=== PATIENT | male | born 1950 | race Two or more races ===

== ENCOUNTER 2017-08-12 19:32 | Emergency (ER) | payer MEDICARE ==
[2017-08-12] MEDS ORDERED: ONDANSETRON HCL INJ/PF 4 MG/2 ML SDV IV ONE (20:23)
[2017-08-12] MEDS ORDERED: HYDROMORPHONE HCL INJ/PF 2 MG/ML AMPULE IV ONE (20:23)
[2017-08-12] MEDS ORDERED: KETOROLAC TROMETHAMINE INJ/PF 30 MG/1 ML SDV IV ONE (20:23)
[2017-08-12] MEDS ORDERED: NORMAL SALINE 1000 ML 1,000 ML IV ONE (20:24)
--- NOTE | 2017-08-12 20:29 | ER Document Report ---
ED Medical Screen (RME) - General Chief Complaint: Abdominal Pain Stated Complaint: ABDOMINAL PAIN Time Seen by Provider: 08/12/17 20:18 Notes: Using NIMCO Ramirez, as security flex utility officer because JOSIE could not be found in [facility]. 66-year-old male, no past medical history no surgeries, presents with 2 days of diffuse abdominal pain and nausea. He is also having bilateral flank pain and a small amount of dysuria. PE: Tachycardia, diffuse abdominal tenderness, normal bowel sounds I have greeted and performed a rapid initial assessment of this patient. A comprehensive ED assessment and evaluation of the patient, analysis of test results and completion of the medical decision making process will be conducted by additional ED providers. - Related Data Allergies/Adverse Reactions: No Known Allergies Allergy (Verified 08/12/17 19:36) Physical Exam - Vital signs Vitals: Temp Pulse Resp BP Pulse Ox 99.5 F 120 H 18 147/86 H 95 08/12/17 19:38 08/12/17 19:38 08/12/17 19:38 08/12/17 19:38 08/12/17 19:38 Course - Vital Signs Vital signs: Temp Pulse Resp BP Pulse Ox 99.5 F 120 H 18 147/86 H 95 08/12/17 19:38 08/12/17 19:38 08/12/17 19:38 08/12/17 19:38 08/12/17 19:38
[2017-08-12 20:56] LABS: HEMOGLOBIN 13.7 g/dL (13.5-17.0); MEAN CORPUSCULAR HEMOGLOBIN 29.1 pg (27.0-33.4); MEAN CORPUSCULAR HGB CONC 34.3 g/dL (32.0-36.0); MEAN CORPUSCULAR VOLUME 85 fl (80-97); PLATELET COUNT 233 10^3/uL (150-450); RED BLOOD COUNT 4.72 10^6/uL (4.35-5.55); RED CELL DISTRIBUTION WIDTH 15.1 % (11.5-14.0); WHITE BLOOD COUNT 7.5 10^3/uL (4.0-10.5)
[2017-08-12] MEDS ORDERED: LIDOCAINE 2% VISCOUS SOLN 20 ML UDCUP PO ONE (21:03)
[2017-08-12] MEDS ORDERED: MAG HYDROX/AL HYDROX/SIMETH SUSP 30 ML UDCUP PO ONE (21:03)
[2017-08-12] MEDS ORDERED: METOCLOPRAMIDE HCL ORAL SOLN 10 MG/10 ML UDCUP PO ONE (21:03)
[2017-08-12 21:10] LABS: ALANINE AMINOTRANSFERASE 43 U/L (21-72); ALBUMIN 3.6 g/dL (3.5-5.0); ALKALINE PHOSPHATASE 143 U/L (38-126); ANION GAP 14 (5-19); ASPARTATE AMINO TRANSFERASE 48 U/L (17-59); BILIRUBIN,DIRECT 0.5 mg/dL (0.0-0.4); BILIRUBIN,TOTAL 0.8 mg/dL (0.2-1.3); BLOOD UREA NITROGEN 16 mg/dL (7-20); CALCIUM 8.8 mg/dL (8.4-10.2); CARBON DIOXIDE 25 mmol/L (22-30); CHLORIDE 97 mmol/L (98-107); GLUCOSE 108 mg/dL (75-110); LIPASE 145.3 U/L (23-300); POTASSIUM 4.9 mmol/L (3.6-5.0); SODIUM 135.9 mmol/L (137-145); TOTAL PROTEIN 7.9 g/dL (6.3-8.2)
[2017-08-12 21:14] LABS: ABSOLUTE LYMPHOCYTES# (MANUAL) 1.7 10^3/uL (0.5-4.7); ABSOLUTE MONOCYTES # (MANUAL) 1.1 10^3/uL (0.1-1.4); ABSOLUTE NEUTROPHILS# (MANUAL) 4.7 10^3/uL (1.7-8.2); BASOPHILS % (MANUAL) 0 % (0-2); EOSINOPHILS % (MANUAL) 1 % (0-6); LYMPHOCYTES % (MANUAL) 20 % (13-45); MONOCYTES % (MANUAL) 15 % (3-13); SEGMENTED NEUTROPHILS % (MAN) 62 % (42-78); TOTAL CELLS COUNTED 100
[2017-08-12 21:15] LABS: ANISOCYTOSIS SLIGHT; PLATELET COMMENT ADEQUATE; TOXIC GRANULATION SLIGHT
[2017-08-12 22:11] LABS: APPEARANCE,URINE CLEAR; BILIRUBIN,URINE NEGATIVE (NEGATIVE); COLOR,URINE YELLOW; GLUCOSE, URINE NEGATIVE (NEGATIVE); KETONES,URINE TRACE mg/dL (NEGATIVE); LEUKOCYTE ESTERASE,URINE NEGATIVE (NEGATIVE); NITRITE,URINE NEGATIVE (NEGATIVE); PROTEIN,URINE NEGATIVE (NEGATIVE)
--- NOTE | 2017-08-12 22:36 | EKG REPORT ---
SEVERITY:- OTHERWISE NORMAL ECG - SINUS TACHYCARDIA : Confirmed by: Justin Armstrong 12-Aug-2017 22:34:54
--- NOTE | 2017-08-12 22:41 | RADIOLOGY REPORT (SQ) ---
EXAM DESCRIPTION: CT ABD/PELVIS WITH IV ONLY COMPLETED DATE/TIME: 08/12/2017 10:23 pm REASON FOR STUDY: abd pain COMPARISON: None. TECHNIQUE: CT scan of the abdomen and pelvis performed using helical scanning technique with dynamic intravenous contrast injection. No oral contrast. Images reviewed with lung, soft tissue, and bone windows. Reconstructed coronal and sagittal MPR images reviewed. Delayed images for evaluation of the urinary system also acquired. All images stored on PACS. All CT scanners at this facility use dose modulation, iterative reconstruction, and/or weight based d osing when appropriate to reduce radiation dose to as low as reasonably achievable (ALARA). [facility]: Dose Right [facility]: CareDose [facility]: Dose Right [facility]: Teradose 4D [facility]: Venda CONTRAST TYPE AND DOSE: contrast/concentration: Isovue 370.00 mg/ml; Total Contrast Delivered: 82.0 ml; Total Saline Delivered: 38.0 ml RENAL FUNCTION: Not recorded. RADIATION DOSE: CT Rad equipment meets quality standard of care and radiation dose reduction techniq ues were employed. CTDIvol: 9.9 mGy. DLP: 1129 mGy-cm.. LIMITATIONS: None. FINDINGS: LOWER CHEST: 2 small right pulmonary nodules are present. The larger on image 9 measures about 7 mm. LIVER: Normal size. No masses. No dilated ducts. SPLEEN: Normal size. No focal lesions. PANCREAS: No masses. No significant calcifications. No adjacent inflammation or peripancreatic fluid collections. Pancreatic duct not dilated. GALLBLADDER: No identified stones by CT criteria. No inflammatory changes to suggest cholecystitis. ADRENAL GLANDS: There is thickening of the right adrenal gland. A 56 mm left adrenal mass is present . This is relatively low-density. RIGHT KIDNEY AND URETER: No solid masses. No significant calcifications. No hydronephrosis or hyd roureter. LEFT KIDNEY AND URETER: No solid masses. No significant calcifications. No hydronephrosis or hydr oureter. AORTA AND VESSELS: No aneurysm. No dissection. Renal arteries, SMA, celiac without stenosis. RETROPERITONEUM: Periaortic, and mesenteric adenopathy is present. There is what appears to be a a 5 5 mm shae mass just to the right of the aorta as measured on image 32. BOWEL AND PERITONEAL CAVITY: No masses or inflammatory changes. No free fluid or peritoneal masses. APPENDIX: Normal. PELVIS: No mass. No free fluid. Normal bladder. ABDOMINAL WALL: No masses. No hernias. BONES: No acute osseous abnormality. OTHER: No other significant finding. IMPRESSION: 1. 2 small incidental right pulmonary nodules. 2. Abdominal adenopathy concerning for lymphoma. 3. The mass described to the right of the aorta can be seen to be separate from the adrenal. There is thickening in the right adrenal gland. 4. The mass on the left cannot be seen to be separate from the adrenal and is felt to represent an a drenal mass. TECHNICAL DOCUMENTATION: JOB ID: [id number] Quality ID # [id number]: Final reports with documentation of one or more dose reduction techniques (e.g., Au tomated exposure control, adjustment of the mA and/or kV according to patient size, use of iterative reconstruction technique) 2010 [employer]- All Rights Reserved Reading location - IP/workstation name: [email or web address]
--- NOTE | 2017-08-12 23:29 | ER Document Report ---
ED General - General Chief Complaint: Abdominal Pain Stated Complaint: ABDOMINAL PAIN Time Seen by Provider: 08/12/17 20:18 Mode of Arrival: Ambulatory Information source: Patient Notes: 66-year-old male interpretation performed with Kathia presents with epigastric pain. Pt notes he gets gerd often, denies any fevers or chills, denies any chest pain. - HPI Onset: Last week - For the past 5 days Onset/Duration: Persistent Quality of pain: Burning Severity: Mild Pain Level: 1 Associated symptoms: Other Exacerbated by: Denies Relieved by: Denies Similar symptoms previously: No Recently seen / treated by doctor: No - Related Data Allergies/Adverse Reactions: No Known Allergies Allergy (Verified 08/12/17 19:36) Past Medical History - Social History Smoking Status: Never Smoker Cigarette use (# per day): No Chew tobacco use (# tins/day): No Smoking Education Provided: No Frequency of alcohol use: None Drug Abuse: None Family History: Reviewed & Not Pertinent Patient has suicidal ideation: No Patient has homicidal ideation: No Renal/ Medical History: Denies: Hx Peritoneal Dialysis Review of Systems - Review of Systems Notes: REVIEW OF SYSTEMS: CONSTITUTIONAL : Denies fever, chills, or sweats. Denies recent illness. EENT: Denies eye, ear, throat, or mouth pain or symptoms. Denies nasal or sinus congestion or discharge. Denies throat, tongue, or mouth swelling or difficulty swallowing. CARDIOVASCULAR: Denies chest pain. Denies palpitations or racing or irregular heart beat. Denies ankle edema. RESPIRATORY: Denies cough, cold, or chest congestion. Denies shortness of breath, difficulty breathing, or wheezing. GASTROINTESTINAL: Admits to gastric reflux heartburn epigastric pain GENITOURINARY: Denies difficulty urinating, painful urination, burning, frequency, blood in urine, or discharge. MUSCULOSKELETAL: Denies back or neck pain or stiffness. Denies joint pain or swelling. SKIN: Denies rash, lesions or sores. HEMATOLOGIC : Denies easy bruising or bleeding. LYMPHATIC: Denies swollen, enlarged glands. NEUROLOGICAL: Denies confusion or altered mental status. Denies passing out or loss of consciousness. Denies dizziness or lightheadedness. Denies headache. Denies weakness or paralysis or loss of use of either side. Denies problems with gait or speech. Denies sensory loss, numbness, or tingling. Denies seizures. PSYCHIATRIC: Denies anxiety or stress. Denies depression, suicidal ideation, or homicidal ideation. ALL OTHER SYSTEMS REVIEWED AND NEGATIVE. Dictation was performed using [employer] voice recognition software PHYSICAL EXAMINATION: GENERAL: Well-appearing, well-nourished and in no acute distress. HEAD: Atraumatic, normocephalic. EYES: Pupils equal round and reactive to light, extraocular movements intact, sclera anicteric, conjunctiva are normal. ENT: Nares patent, oropharynx clear without exudates. Moist mucous membranes. NECK: Normal range of motion, supple without lymphadenopathy LUNGS: Breath sounds clear to auscultation bilaterally and equal. No wheezes rales or rhonchi. HEART: Tachycardic secondary to pain ABDOMEN: Soft, nontender, nondistended abdomen. No guarding, no rebound. No masses appreciated. Musculoskeletal: Normal range of motion, no pitting or edema. No cyanosis. NEUROLOGICAL: Cranial nerves grossly intact. Normal speech, normal gait. Normal sensory, motor exams PSYCH: Normal mood, normal affect. SKIN: Warm, Dry, normal turgor, no rashes or lesions noted. Physical Exam - Vital signs Vitals: Temp Pulse Resp BP Pulse Ox 99.5 F 120 H 18 147/86 H 95 08/12/17 19:38 08/12/17 19:38 08/12/17 19:38 08/12/17 19:38 08/12/17 19:38 Course - Re-evaluation Re-evalutation: 08/12/17 23:55 Patient was given GI cocktail notes symptoms have completely resolved, his heart rate went from 120 to a normal sinus rhythm, patient has been evaluated and watched in the emergency department she was noted to blood work performed which noted no significant abnormality, however the patient CT is concerning for lymphpoma, possible adrenal mass, possible pulmonary nodules, I had a very long discussion with the patient through the nurse staff industrial service regarding this , he was able to explain that he understood my findings, I will have the patient follow-up with the oncologist tomorrow, I did hand write what I would like him to say on the phone so he may get an appointment with them After performing a Medical Screening Examination, I estimate there is LOW risk for ACUTE APPENDICITIS, BOWEL OBSTRUCTION, ACUTE CHOLECYSTITIS, PERFORATED DIVERTICULITIS, INCARCERATED HERNIA, PANCREATITIS, TESTICULAR TORSION or PERFORATED ULCER, thus I consider the discharge disposition reasonable. Also, there is no evidence or peritonitis, sepsis, or toxicity. I have reevaluated this patient multiple times and no significant life threatening changes are noted. The patient and I have discussed the diagnosis and risks, and we agree with discharging home with close follow-up with the understanding that symptoms and presentations can change. We also discussed returning to the Emergency Department immediately if new or worsening symptoms occur. We have discussed the symptoms which are most concerning (e.g., bloody stool, fever, changing or worsening pain, intractable vomiting - standard verbal up date) that necessitate immediate return. - Vital Signs Vital signs: Temp Pulse Resp BP Pulse Ox 99.5 F 120 H 18 147/86 H 95 08/12/17 19:38 08/12/17 19:38 08/12/17 19:38 08/12/17 19:38 08/12/17 19:38 - Laboratory Result Diagrams: 08/12/17 20:38 08/12/17 20:38 Laboratory results interpreted by me: 08/12/17 08/12/17 08/12/17 20:38 20:38 20:38 RDW 15.1 H Monocytes % (Manual) 15 H Sodium 135.9 L Chloride 97 L Direct Bilirubin 0.5 H Alkaline Phosphatase 143 H Urine Ketones TRACE H Urine Urobilinogen 4.0 H - Diagnostic Test Radiology reviewed: Image reviewed - CT abdomen pelvis with contrast is concerning for lymphoma results have been provided to the patient, Reports reviewed Discharge - Discharge Clinical Impression: GERD (gastroesophageal reflux disease) Qualifiers: Esophagitis presence: with esophagitis Qualified Code(s): K21.0 - Gastro- esophageal reflux disease with esophagitis Lymphoma Qualifiers: Lymphoma type: unspecified type Lymphoma site: unspecified region Qualified Code(s): C85.90 - Non-Hodgkin lymphoma, unspecified, unspecified site Condition: Stable Disposition: HOME, SELF-CARE Instructions: Lymphadenopathy ([facility]) Prescriptions: Famotidine [Pepcid 40 mg Tablet] 40 mg PO DAILY #30 tablet Referrals: DARI JOSEPH MD [ACTIVE STAFF] - Follow up tomorrow
[2017-08-12 23:46] VITALS: BP 108/67
== END 2017-08-12 23:53 | disposition home or self-care (01) ==
LOC: ER 19:32
DX: K21.0 Gastro-esophageal reflux disease with esophagitis (principal); C85.90 Non-Hodgkin lymphoma, unspecified, unspecified site; R10.13 Epigastric pain; R00.0 Tachycardia, unspecified
CPT/HCPCS: 93005; 99284; 96361; 96374; 96375; 36415; 83690; 85025; 80053; 81001; 74177; 93010; J3490; J1885; A9270; J1170; J2405; J7030